=== PATIENT | male | born 1980 | race Caucasian/White ===

== ENCOUNTER 2021-08-23 16:48 | Emergency (ER) | payer MEDICAID, SELFPAY ==
--- NOTE | 2021-08-23 16:57 | XR_ITS ---
PROCEDURE INFORMATION: Exam: XR Left Ankle Exam date and time: 08/23/2021 4:57 PM Age: 41 years old Clinical indication: Pain; Ankle; Left; Additional info: Heel pain TECHNIQUE: Imaging protocol: XR Left ankle. Views: 3 or more views. COMPARISON: CR XR FOOT LT MIN 3V 08/23/2021 4:55 PM FINDINGS: Bones/joints: Small posterior calcaneal enthesophyte. Normal anatomic alignment. There is no evidence of acutely displaced fractures. There is no evidence of joint dislocation. No aggressive osseous lesions. Soft tissues: There is soft tissue swelling. IMPRESSION: 1. No acute skeletal pathology. 2. Mild soft tissue swelling.
--- NOTE | 2021-08-23 16:57 | XR_ITS ---
PROCEDURE INFORMATION: Exam: XR Left Foot Exam date and time: 08/23/2021 4:55 PM Age: 41 years old Clinical indication: Pain; Heel; Left; Additional info: Heel pain TECHNIQUE: Imaging protocol: XR Left foot. Views: 3 or more views. COMPARISON: No relevant prior studies available. FINDINGS: Bones/joints: Osseous anatomic alignment is well preserved. No acutely displaced fracture or dislocation. Joint spaces are well preserved. Small posterior calcaneal enthesophyte. Soft tissues: There is no significant soft tissue swelling. IMPRESSION: No acute skeletal pathology.
[2021-08-23 17:15] VITALS: BP 138/89; PULSE 79; RESP 20; TEMP 36.8; O2SAT 98; BMI 38.7
--- NOTE | 2021-08-23 17:51 | HMH.EDUTC ---
[facility] [place] Impression: Left foot pain Left ankle pain Qualifiers: Chronicity: acute Qualified Code(s): M25.572 - Pain in left ankle and joints of left foot Left ankle injury Qualifiers: Encounter type: initial encounter Qualified Code(s): S99.912A - Unspecified injury of left ankle, initial encounter Disposition: Home, Self-Care Condition on Discharge: Good Additional Instructions: Rest the extremity, Elevate the extremity as tolerated while you are resting. Take ibuprofen for pain. I sent in a prescription to your pharmacy. Follow up with Dr. Palomo (podiatry). I put in a referral but you need to call her office and schedule an appointment. Follow up with your regular doctor. GO TO THE ER FOR ANY WORSENING SYMPTOMS Prescriptions: Ibuprofen [Ibuprofen 800mg Tablet] 800 mg PO Q8HP PRN #30 tab PRN Reason: Moderate Pain Transmission Status: Received by [id number] Diclofenac Sodium [Voltaren Arthritis Pain] 50 gm TP BIDP PRN #20 gm PRN Reason: Mild Pain Transmission Status: Received by [id number] Referrals: Provider,MD Jv [Primary Care Provider] - Jonathan Lam MD [Staff Physician] - Forms: Work/School Release Time of Disposition: 18:02 Medical Decision Making - Medical Records Medical records reviewed: No: I reviewed the patient's medical records. - Ramón Inquiry Pt receiving controlled substance: No Vital Signs: 08/23/21 17:15 08/23/21 18:09 Temperature 98.2 F 98.2 F Temperature Source Oral Pulse Rate 79 Pulse Rate [Left Radial] 79 Respiratory Rate 20 20 Blood Pressure 138/89 Blood Pressure [Right Arm] 138/89 Blood Pressure Mean [Right Arm] 105 02 Sat by Pulse Oximetry 98 - Radiology Data #1 Image(s): Foot/Toes Image Reviewed: Yes I reviewed the patient's radiology image, Yes I have reviewed radiologist's interpretation Preliminary Findings: Normal/NAD, No Fracture Seen PROCEDURE INFORMATION: Exam: XR Left Foot Exam date and time: 08/23/2021 4:55 PM Age: 41 years old Clinical indication: Pain; Heel; Left; Additional info: Heel pain TECHNIQUE: Imaging protocol: XR Left foot. Views: 3 or more views. COMPARISON: No relevant prior studies available. FINDINGS: Bones/joints: Osseous anatomic alignment is well preserved. No acutely displaced fracture or dislocation. Joint spaces are well preserved. Small posterior calcaneal enthesophyte. Soft tissues: There is no significant soft tissue swelling. IMPRESSION: No acute skeletal pathology. #2 Image(s): Ankle Image Reviewed: Yes I reviewed the patient's radiology image, Yes I have reviewed radiologist's interpretation Preliminary Findings: Normal/NAD, No Fracture Seen PROCEDURE INFORMATION: Exam: XR Left Ankle Exam date and time: 08/23/2021 4:57 PM Age: 41 years old Clinical indication: Pain; Ankle; Left; Additional info: Heel pain TECHNIQUE: Imaging protocol: XR Left ankle. Views: 3 or more views. COMPARISON: CR XR FOOT LT MIN 3V 08/23/2021 4:55 PM FINDINGS: Bones/joints: Small posterior calcaneal enthesophyte. Normal anatomic alignment. There is no evidence of acutely displaced fractures. There is no evidence of joint dislocation. No aggressive osseous lesions. Soft tissues: There is soft tissue swelling. IMPRESSION: 1. No acute skeletal pathology. 2. Mild soft tissue swelling. [facility] [place] Stated complaint: Left heel pain AO about 3 weeks ago Time Seen by Provider: 08/23/21 17:51 Mode of Arrival: Ambulatory Source of Information: Patient Limitations: No Limitations Description of Symptoms (Recalled from Triage Doc. by RN): pt here for left heel pain. pain has been going on for 3 weeks. HEENT Symptoms (Recalled from RN notes): Yes
[2021-08-23 18:09] VITALS: BP 138/89; PULSE 79; RESP 20; TEMP 36.8
== END 2021-08-23 18:09 | disposition home or self-care (01) ==
PROVIDERS: Emergency Provider Nurse Practitioner Family
DX: M79.672 Pain in left foot (principal)
CPT/HCPCS: 73610; 73630; 99212; G0463